=== PATIENT | female | born 1940 | race Caucasian/White ===

== ENCOUNTER 2017-08-25 01:52 | Inpatient (IN) | payer MEDICARE, BC ==
[~2017-08-25] VITALS: Ht 157.5 cm; Wt 119.0 kg
[2017-08-25 02:15] LABS: BASOPHILS % (AUTO) 0 % (0-1); EOSINOPHILS # (AUTO) 0.08 x10^3/uL (0-0.4); EOSINOPHILS % (AUTO) 1 % (1-7); LYMPHOCYTES # (AUTO) 0.96 x10^3/uL (1-3.4); LYMPHOCYTES % (AUTO) 10 % (22-44); MD NO; MEAN CORPUSCULAR HEMOGLOBIN 33.5 pg (27.0-34.8); MEAN CORPUSCULAR HGB CONC 33.7 g/dL (32.4-35.8); MEAN CORPUSCULAR VOLUME 99.4 fL (80-100); MEAN PLATELET VOLUME 7.3 fL (7.4-10.4); MONOCYTES # (AUTO) 0.44 x10^3/uL (0.2-0.8); MONOCYTES % (AUTO) 5 % (2-9); NEUTROPHILS # (AUTO) 8.24 x10^3/uL (1.8-6.8); NEUTROPHILS % (AUTO) 85 % (42-75); PLATELET COUNT 221 x10^3/uL (130-400); RED BLOOD COUNT 3.75 x10^6/uL (3.82-5.3); RED CELL DISTRIBUTION WIDTH 15.1 % (9.6-15.2)
[2017-08-25] MEDS ORDERED: LISI-170 PO (02:17)
[2017-08-25] MEDS ORDERED: FLUO20TA25 PO (02:17)
[2017-08-25] MEDS ORDERED: MS CONTIN ER PO (02:17)
[2017-08-25] MEDS ORDERED: ATOR20TA PO (02:17)
[2017-08-25] MEDS ORDERED: MORP-52 PO (02:17)
[2017-08-25] MEDS ORDERED: CALC600T23 PO (02:17)
[2017-08-25] MEDS ORDERED: TRAZ100T15 PO (02:17)
[2017-08-25] MEDS ORDERED: MELA5TAB19 PO (02:17)
[2017-08-25] MEDS ORDERED: GLIP5TAB10 PO (02:17)
[2017-08-25] MEDS ORDERED: BUME0.5T PO (02:18)
[2017-08-25] MEDS ORDERED: METO50TA82 PO (02:18)
[2017-08-25] MEDS ORDERED: ALLO100T64 PO (02:18)
[2017-08-25 02:23] LABS: INTERNATIONAL NORMALIZED RATIO 0.99 (0.93-1.1); PROTHROMBIN TIME 10.3 Seconds (9.6-11.5)
[2017-08-25 02:28] LABS: ALANINE AMINOTRANSFERASE 31 U/L (12-78); ALBUMIN 3.3 g/dL (3.4-5.0); ANION GAP 6 mmol/L (5-15); CALCIUM 8.6 mg/dL (8.5-10.1); CHLORIDE 106 mmol/L (98-107); CREATININE 1.27 mg/dL (0.55-1.02)
[2017-08-25 02:32] LABS: ALKALINE PHOSPHATASE 96 U/L (45-117); BILIRUBIN,TOTAL 0.3 mg/dL (0.2-1.0); TOTAL PROTEIN 7.1 g/dL (6.4-8.2); TROPONIN I < 0.015 ng/mL (0.000-0.045)
[2017-08-25 04:00] VITALS: BP 144/83
[2017-08-25] MEDS ORDERED: ONDANSETRON 2MG/ML, 2ML IVPush PRN (05:30)
[2017-08-25] MEDS ORDERED: hydrALAzine 20 MG/ML, 1ML IVPush PRN (05:30)
[2017-08-25] MEDS ORDERED: ACETAMINOPHEN 325 MG TABLET PO PRN (05:30)
[2017-08-25] MEDS: MS CONTIN HOMEMEDPO SCH ×2 (06:40→20:36)
[2017-08-25 07:08] LABS: TROPONIN I < 0.015 ng/mL (0.000-0.045)
[2017-08-25 07:11] VITALS: BP 118/80
[2017-08-25] MEDS ORDERED: MELATONIN 5 MG TABLET PO SCH ×2 (09:00→21:00)
[2017-08-25] MEDS: INSULIN LISPRO 100 UNITS/ML, PEN SQ-INSULIN SCH ×4 (09:55→21:00)
[2017-08-25] MEDS: FLUOXETINE HCL 20 MG CAPSULE PO SCH (10:17)
[2017-08-25] MEDS: BUMETANIDE 0.25 MG/ML, 4ML IV SCH ×2 (10:17→20:34)
[2017-08-25] MEDS: ALLOPURINOL 100 MG TABLET PO SCH (10:17)
[2017-08-25] MEDS: METOPROLOL TARTRATE 50 MG TABLET PO SCH ×2 (10:18→20:35)
[2017-08-25] MEDS: CALCIUM CARBONATE 500 MG TABLET PO SCH (10:18)
[2017-08-25] MEDS: POTASSIUM CHLORIDE 20 MEQ PACKET PO SCH (10:19)
[2017-08-25] MEDS: SODIUM CHLORIDE FLUSH 10ML SYR IVF SCH ×2 (10:19→20:36)
[2017-08-25] MEDS: ENOXAPARIN 30 MG/0.3 ML SQ SCH (10:21)
[2017-08-25] MEDS: POLYETHYLENE GLYCOL 17 GM PACKET PO PRN (10:29)
[2017-08-25 12:32] LABS: TROPONIN I < 0.015 ng/mL (0.000-0.045)
[2017-08-25 15:57] VITALS: BP 102/59
[2017-08-25 20:30] VITALS: BP 131/81
[2017-08-25] MEDS ORDERED: ATORVASTATIN 20 MG TABLET PO SCH (21:00)
[2017-08-25] MEDS ORDERED: TRAZODONE 100MG TABLET PO SCH (21:00)
[2017-08-25] MEDS: morphine SULFATE 10 MG/ML, 1ML IVPush PRN (21:07)
[2017-08-26 01:21] VITALS: BP 111/79
[2017-08-26 05:43] LABS: BASOPHILS # (AUTO) 0.03 x10^3/uL (0-0.1); BASOPHILS % (AUTO) 1 % (0-1); EOSINOPHILS # (AUTO) 0.12 x10^3/uL (0-0.4); EOSINOPHILS % (AUTO) 2 % (1-7); LYMPHOCYTES # (AUTO) 1.59 x10^3/uL (1-3.4); LYMPHOCYTES % (AUTO) 23 % (22-44); MD NO; MEAN PLATELET VOLUME 7.6 fL (7.4-10.4); MONOCYTES # (AUTO) 0.45 x10^3/uL (0.2-0.8); MONOCYTES % (AUTO) 7 % (2-9); NEUTROPHILS # (AUTO) 4.68 x10^3/uL (1.8-6.8); NEUTROPHILS % (AUTO) 68 % (42-75); PLATELET COUNT 202 x10^3/uL (130-400); RED CELL DISTRIBUTION WIDTH 15.6 % (9.6-15.2)
[2017-08-26 05:51] LABS: ALANINE AMINOTRANSFERASE 30 U/L (12-78); ALBUMIN 3.2 g/dL (3.4-5.0); ANION GAP 5 mmol/L (5-15); CALCIUM 9.3 mg/dL (8.5-10.1); CHLORIDE 105 mmol/L (98-107); CREATININE 1.29 mg/dL (0.55-1.02)
[2017-08-26 06:01] LABS: ALKALINE PHOSPHATASE 92 U/L (45-117); BILIRUBIN,TOTAL 0.7 mg/dL (0.2-1.0); THYROID STIMULATING HORMONE 0.606 mIU/L (0.358-3.740); TOTAL PROTEIN 6.8 g/dL (6.4-8.2)
[2017-08-26] MEDS: INSULIN LISPRO 100 UNITS/ML, PEN SQ-INSULIN SCH ×2 (07:00→12:28)
[2017-08-26 07:55] VITALS: BP 155/86
[2017-08-26] MEDS: MS CONTIN HOMEMEDPO SCH (09:00)
[2017-08-26] MEDS: ENOXAPARIN 30 MG/0.3 ML SQ SCH (09:02)
[2017-08-26] MEDS: POLYETHYLENE GLYCOL 17 GM PACKET PO PRN (09:02)
[2017-08-26] MEDS: POTASSIUM CHLORIDE 20 MEQ PACKET PO SCH (09:02)
[2017-08-26] MEDS: CALCIUM CARBONATE 500 MG TABLET PO SCH (09:03)
[2017-08-26] MEDS: METOPROLOL TARTRATE 50 MG TABLET PO SCH (09:03)
[2017-08-26] MEDS: FLUOXETINE HCL 20 MG CAPSULE PO SCH (09:03)
[2017-08-26] MEDS: ALLOPURINOL 100 MG TABLET PO SCH (09:03)
[2017-08-26] MEDS: BUMETANIDE 0.25 MG/ML, 4ML IV SCH (09:03)
[2017-08-26] MEDS: SODIUM CHLORIDE FLUSH 10ML SYR IVF SCH (09:04)
[2017-08-26] MEDS: morphine SULFATE 10 MG/ML, 1ML IVPush PRN (11:22)
[2017-08-26 13:09] VITALS: BP 128/78
[2017-08-27] MEDS ORDERED: Morphine IR PO (05:51)
== END 2017-08-26 16:00 | disposition home or self-care (01) | DRG 291 ==
LOC: ED 03:18 → 5SO 03:20 → DCLOUNGE 08-26 15:52
PROVIDERS: ADMIT Hospitalist; ATTEND Hospitalist
DX: I13.0 Hypertensive heart and chronic kidney disease with heart failure and stage 1 through stage 4 chronic kidney disease, or unspecified chronic kidney disease (principal); J96.01 Acute respiratory failure with hypoxia; I50.33 Acute on chronic diastolic (congestive) heart failure; D68.69 Other thrombophilia; E44.0 Moderate protein-calorie malnutrition; Z68.42 Body mass index [BMI] 45.0-49.9, adult; I25.10 Atherosclerotic heart disease of native coronary artery without angina pectoris; E66.9 Obesity, unspecified; N28.9 Disorder of kidney and ureter, unspecified; E11.22 Type 2 diabetes mellitus with diabetic chronic kidney disease; N18.3 Chronic kidney disease, stage 3 (moderate); I48.2 Chronic atrial fibrillation; Z90.49 Acquired absence of other specified parts of digestive tract; Z95.5 Presence of coronary angioplasty implant and graft
CPT/HCPCS: 36415; 71045; 80053; 82962; 83735; 83880; 84100; 84443; 84484; 85025; 85610; 93005; 93306; 99285; J1650; J1815; J2270

== ENCOUNTER 2017-08-27 03:11 | Inpatient (IN) | payer MEDICARE, BC ==
[~2017-08-27] VITALS: Ht 157.5 cm; Wt 111.4 kg
[~2017-08-27 03:11] MED LIST: ALLO100T64 PO; ATOR20TA PO; BUME0.5T PO; CALC600T23 PO; FLUO20TA25 PO; GLIP5TAB10 PO; LISI-170 PO; MELA5TAB19 PO; METO50TA82 PO; MORP-52 PO; MS CONTIN ER PO; TRAZ100T15 PO
[2017-08-27] MEDS ORDERED: SODIUM CHLORIDE FLUSH 10ML SYR IVF ONE (03:30)
[2017-08-27] MEDS ORDERED: NITROGLYCERIN OINT 2%, 1GM TP ONE ×2 (03:30→03:39)
[2017-08-27 03:55] LABS: BASOPHILS % (AUTO) 0 % (0-1); EOSINOPHILS # (AUTO) 0.02 x10^3/uL (0-0.4); EOSINOPHILS % (AUTO) 0 % (1-7); LYMPHOCYTES # (AUTO) 0.53 x10^3/uL (1-3.4); LYMPHOCYTES % (AUTO) 4 % (22-44); MD NO; MEAN CORPUSCULAR HGB CONC 33.2 g/dL (32.4-35.8); MEAN CORPUSCULAR VOLUME 99.4 fL (80-100); MEAN PLATELET VOLUME 7.7 fL (7.4-10.4); MONOCYTES # (AUTO) 0.53 x10^3/uL (0.2-0.8); MONOCYTES % (AUTO) 4 % (2-9); NEUTROPHILS # (AUTO) 11.72 x10^3/uL (1.8-6.8); NEUTROPHILS % (AUTO) 92 % (42-75); PLATELET COUNT 222 x10^3/uL (130-400); RED BLOOD COUNT 3.93 x10^6/uL (3.82-5.3); RED CELL DISTRIBUTION WIDTH 15.7 % (9.6-15.2)
[2017-08-27 04:06] LABS: ALANINE AMINOTRANSFERASE 31 U/L (12-78); ALBUMIN 3.2 g/dL (3.4-5.0); ANION GAP 9 mmol/L (5-15); CALCIUM 8.7 mg/dL (8.5-10.1); CHLORIDE 108 mmol/L (98-107); CREATININE 1.39 mg/dL (0.55-1.02)
[2017-08-27 04:10] LABS: ALKALINE PHOSPHATASE 115 U/L (45-117); BILIRUBIN,TOTAL 0.3 mg/dL (0.2-1.0); TROPONIN I < 0.015 ng/mL (0.000-0.045)
[2017-08-27] MEDS ORDERED: FUROSEMIDE 40 MG/4 ML IV ONE (04:30)
[2017-08-27] MEDS ORDERED: INSULIN REGULAR 100 UNITS/ML, 3ML VIAL SQ-INSULIN ONE (04:30)
[2017-08-27] MEDS ORDERED: FUROSEMIDE 40 MG/4 ML ONE (04:48)
[2017-08-27] MEDS ORDERED: INSULIN REGULAR 100 UNITS/ML, 3ML VIAL ONE (04:49)
[2017-08-27] MEDS ORDERED: POLYETHYLENE GLYCOL 17 GM PACKET PO PRN (05:00)
[2017-08-27] MEDS ORDERED: ENOXAPARIN 30 MG/0.3 ML SQ SCH (05:00)
[2017-08-27] MEDS ORDERED: ONDANSETRON 2MG/ML, 2ML IVPush PRN (05:00)
[2017-08-27 05:30] VITALS: BP 130/83
[2017-08-27] MEDS ORDERED: Morphine IR PO (05:51)
[2017-08-27] MEDS ORDERED: DEXTROSE 50%, 50ML SYRINGE IVPush PRN (06:30)
[2017-08-27] MEDS ORDERED: DEXTROSE 4 GM TAB.CHEW PO PRN (06:30)
[2017-08-27] MEDS ORDERED: GLUCAGON 1 MG IM PRN (06:30)
[2017-08-27] MEDS: MELATONIN 5 MG TABLET PO SCH (08:24)
[2017-08-27] MEDS: INSULIN LISPRO 100 UNITS/ML, PEN SQ-INSULIN SCH ×4 (08:37→20:25)
[2017-08-27] MEDS: CALCIUM CARBONATE 500 MG TABLET PO SCH (08:37)
[2017-08-27] MEDS: MS CONTIN HOMEMEDPO SCH ×2 (08:38→21:00)
[2017-08-27] MEDS: FLUOXETINE HCL 20 MG CAPSULE PO SCH (08:38)
[2017-08-27] MEDS: METOPROLOL TARTRATE 50 MG TABLET PO SCH ×2 (08:39→20:24)
[2017-08-27] MEDS: SODIUM CHLORIDE FLUSH 10ML SYR IVF SCH ×4 (08:39→20:26)
[2017-08-27 08:41] VITALS: BP 136/79
[2017-08-27] MEDS: LISINOPRIL 20 MG TABLET PO SCH (08:45)
[2017-08-27] MEDS: ALLOPURINOL 100 MG TABLET PO SCH (08:45)
[2017-08-27 13:02] LABS: CHLORIDE 108 mmol/L (98-107)
[2017-08-27 13:13] LABS: ALBUMIN 3.1 g/dL (3.4-5.0); ANION GAP 5 mmol/L (5-15); CALCIUM 8.9 mg/dL (8.5-10.1)
[2017-08-27 13:20] LABS: TROPONIN I 0.025 ng/mL (0.000-0.045)
[2017-08-27] MEDS: FUROSEMIDE 40 MG/4 ML IV SCH ×2 (13:20→17:18)
[2017-08-27 13:25] VITALS: BP 142/85
[2017-08-27 14:56] LABS: AMPHETAMINE SCREEN, URINE Negative (Negative); BARBITURATE SCREEN, URINE Negative (Negative); BENZODIAZEPINE SCREEN, URINE Negative (Negative); CANNABINOID SCREEN, URINE Negative (Negative); COCAINE SCREEN, URINE Negative (Negative); METHADONE SCREEN, URINE Negative (Negative); OPIATE SCREEN, URINE Positive (Negative)
[2017-08-27] MEDS: ACETAMINOPHEN 325 MG TABLET PO PRN (17:02)
[2017-08-27 19:01] VITALS: BP 136/83
[2017-08-27] MEDS ORDERED: morphine SULFATE 15 MG TAB.IR ONE (20:21)
[2017-08-27] MEDS: APIXABAN 5 MG TABLET PO SCH (20:24)
[2017-08-27] MEDS: ATORVASTATIN 20 MG TABLET PO SCH (20:24)
[2017-08-27] MEDS ORDERED: TRAZODONE 100MG TABLET PO SCH ×2 (21:00)
[2017-08-27] MEDS ORDERED: morphine SULFATE 15 MG TAB.IR PO SCH ×2 (21:00)
[2017-08-27] MEDS: TRAZODONE 150MG TABLET PO SCH (21:00)
[2017-08-28 01:02] VITALS: BP 149/91
[2017-08-28 05:51] LABS: BASOPHILS # (AUTO) 0.03 x10^3/uL (0-0.1); BASOPHILS % (AUTO) 0 % (0-1); EOSINOPHILS % (AUTO) 1 % (1-7); LYMPHOCYTES # (AUTO) 1.47 x10^3/uL (1-3.4); LYMPHOCYTES % (AUTO) 17 % (22-44); MD NO; MEAN CORPUSCULAR HEMOGLOBIN 33.2 pg (27.0-34.8); MEAN CORPUSCULAR VOLUME 100.6 fL (80-100); MEAN PLATELET VOLUME 7.4 fL (7.4-10.4); MONOCYTES # (AUTO) 0.57 x10^3/uL (0.2-0.8); MONOCYTES % (AUTO) 6 % (2-9); NEUTROPHILS # (AUTO) 6.75 x10^3/uL (1.8-6.8); NEUTROPHILS % (AUTO) 76 % (42-75); PLATELET COUNT 206 x10^3/uL (130-400); RED BLOOD COUNT 3.61 x10^6/uL (3.82-5.3); RED CELL DISTRIBUTION WIDTH 15.8 % (9.6-15.2)
[2017-08-28 05:59] LABS: ANION GAP 4 mmol/L (5-15); CALCIUM 8.8 mg/dL (8.5-10.1); CHLORIDE 104 mmol/L (98-107); CHOLESTEROL, TOTAL 150 mg/dL (140-239); CREATININE 1.17 mg/dL (0.55-1.02); TRIGLYCERIDES 128 mg/dL (50-200); VLDL CHOLESTEROL 26 mg/dL (0-25)
[2017-08-28 06:06] LABS: HEMOGLOBIN A1C 6.4 % (4.2-6.3)
[2017-08-28 06:09] LABS: HDL CHOL % 33 % (28-40); HDL CHOLESTEROL (DIRECT) 50 mg/dL (40-60); LDL CHOLESTEROL,CALCULATED 74 mg/dL (54-169); LDL/HDL RATIO 1.5 (0.5-3.0); THYROID STIMULATING HORMONE 0.588 mIU/L (0.358-3.740)
[2017-08-28] MEDS ORDERED: POTASSIUM CHLORIDE 20 MEQ TAB.ER.PRT PO ONE (06:30)
[2017-08-28 07:06] VITALS: BP 143/89
[2017-08-28 07:45] LABS: FOLATE LEVEL 17.6 ng/mL (3.1-17.5)
[2017-08-28] MEDS: INSULIN LISPRO 100 UNITS/ML, PEN SQ-INSULIN SCH ×4 (08:47→20:14)
[2017-08-28] MEDS ORDERED: morphine SULFATE 15 MG TAB.IR PO SCH (09:00)
[2017-08-28] MEDS ORDERED: ENOXAPARIN 40 MG/0.4 ML SQ SCH (09:00)
[2017-08-28] MEDS: FUROSEMIDE 40 MG/4 ML IV SCH ×2 (09:25→17:15)
[2017-08-28] MEDS: SODIUM CHLORIDE FLUSH 10ML SYR IVF SCH ×2 (09:25→20:12)
[2017-08-28] MEDS: CALCIUM CARBONATE 500 MG TABLET PO SCH (09:26)
[2017-08-28] MEDS: METOPROLOL TARTRATE 50 MG TABLET PO SCH ×2 (09:26→20:13)
[2017-08-28] MEDS: FLUOXETINE HCL 20 MG CAPSULE PO SCH (09:26)
[2017-08-28] MEDS: ALLOPURINOL 100 MG TABLET PO SCH (09:27)
[2017-08-28] MEDS: APIXABAN 5 MG TABLET PO SCH ×2 (09:27→20:13)
[2017-08-28] MEDS: LISINOPRIL 20 MG TABLET PO SCH (09:27)
[2017-08-28 14:42] VITALS: BP 140/82
[2017-08-28] MEDS: ACETAMINOPHEN 325 MG TABLET PO PRN ×2 (17:15→20:33)
[2017-08-28 19:20] VITALS: BP 149/91
[2017-08-28] MEDS: TRAZODONE 150MG TABLET PO SCH (20:12)
[2017-08-28] MEDS: ATORVASTATIN 20 MG TABLET PO SCH (20:13)
[2017-08-28] MEDS: MELATONIN 5 MG TABLET PO SCH (20:33)
[2017-08-29 00:24] VITALS: BP 168/94
[2017-08-29 05:37] LABS: BASOPHILS # (AUTO) 0.01 x10^3/uL (0-0.1); BASOPHILS % (AUTO) 0 % (0-1); EOSINOPHILS # (AUTO) 0.08 x10^3/uL (0-0.4); EOSINOPHILS % (AUTO) 1 % (1-7); LYMPHOCYTES % (AUTO) 21 % (22-44); MD NO; MEAN CORPUSCULAR HEMOGLOBIN 33.6 pg (27.0-34.8); MEAN CORPUSCULAR HGB CONC 33.8 g/dL (32.4-35.8); MEAN CORPUSCULAR VOLUME 99.4 fL (80-100); MEAN PLATELET VOLUME 7.4 fL (7.4-10.4); MONOCYTES # (AUTO) 0.48 x10^3/uL (0.2-0.8); MONOCYTES % (AUTO) 7 % (2-9); NEUTROPHILS % (AUTO) 71 % (42-75); PLATELET COUNT 221 x10^3/uL (130-400); RED BLOOD COUNT 3.95 x10^6/uL (3.82-5.3); RED CELL DISTRIBUTION WIDTH 15.4 % (9.6-15.2)
[2017-08-29 05:52] LABS: ALBUMIN 3.2 g/dL (3.4-5.0); ANION GAP 7 mmol/L (5-15); CALCIUM 9.4 mg/dL (8.5-10.1); CHLORIDE 103 mmol/L (98-107); CREATININE 1.08 mg/dL (0.55-1.02)
[2017-08-29] MEDS ORDERED: POTASSIUM CHLORIDE 20 MEQ TAB.ER.PRT PO ONE (06:30)
[2017-08-29 07:45] VITALS: BP 139/90
[2017-08-29] MEDS ORDERED: FUROSEMIDE 40 MG/4 ML IV SCH (09:00)
[2017-08-29] MEDS: INSULIN LISPRO 100 UNITS/ML, PEN SQ-INSULIN SCH ×4 (09:07→20:21)
[2017-08-29] MEDS: LISINOPRIL 20 MG TABLET PO SCH (09:09)
[2017-08-29] MEDS: METOPROLOL TARTRATE 50 MG TABLET PO SCH ×2 (09:09→20:23)
[2017-08-29] MEDS: APIXABAN 5 MG TABLET PO SCH ×2 (09:09→20:22)
[2017-08-29] MEDS: SODIUM CHLORIDE FLUSH 10ML SYR IVF SCH ×2 (09:09→20:23)
[2017-08-29] MEDS: ALLOPURINOL 100 MG TABLET PO SCH (09:10)
[2017-08-29] MEDS: CALCIUM CARBONATE 500 MG TABLET PO SCH (09:11)
[2017-08-29] MEDS: morphine SULFATE 15 MG TAB.IR PO PRN (09:12)
[2017-08-29] MEDS: FLUOXETINE HCL 20 MG CAPSULE PO SCH (09:12)
[2017-08-29] MEDS: ACETAMINOPHEN 325 MG TABLET PO PRN ×2 (13:21→22:29)
[2017-08-29 15:04] VITALS: BP 135/84
[2017-08-29 18:26] VITALS: BP 134/80
[2017-08-29] MEDS: TRAZODONE 150MG TABLET PO SCH (20:21)
[2017-08-29] MEDS: ATORVASTATIN 20 MG TABLET PO SCH (20:23)
[2017-08-29] MEDS: MELATONIN 5 MG TABLET PO SCH (20:23)
[2017-08-30 01:28] VITALS: BP 137/84
[2017-08-30 04:54] LABS: ALBUMIN 3.2 g/dL (3.4-5.0); ANION GAP 6 mmol/L (5-15); CALCIUM 9.3 mg/dL (8.5-10.1); CHLORIDE 104 mmol/L (98-107); CREATININE 1.11 mg/dL (0.55-1.02)
[2017-08-30] MEDS: INSULIN LISPRO 100 UNITS/ML, PEN SQ-INSULIN SCH ×4 (07:00→20:22)
[2017-08-30 07:09] VITALS: BP 148/80
[2017-08-30] MEDS: APIXABAN 5 MG TABLET PO SCH ×2 (08:40→20:20)
[2017-08-30] MEDS: ALLOPURINOL 100 MG TABLET PO SCH (08:40)
[2017-08-30] MEDS: CALCIUM CARBONATE 500 MG TABLET PO SCH (08:40)
[2017-08-30] MEDS: LISINOPRIL 20 MG TABLET PO SCH (08:41)
[2017-08-30] MEDS: FLUOXETINE HCL 20 MG CAPSULE PO SCH (08:41)
[2017-08-30] MEDS: METOPROLOL TARTRATE 50 MG TABLET PO SCH ×2 (08:41→20:20)
[2017-08-30] MEDS: FUROSEMIDE 40 MG TABLET PO SCH (08:42)
[2017-08-30] MEDS: SODIUM CHLORIDE FLUSH 10ML SYR IVF SCH ×2 (09:00→20:20)
[2017-08-30 11:20] LABS: CLOSTRIDIUM DIFFICILE ANTIGEN NEGATIVE; CLOSTRIDIUM DIFFICILE TOXIN NEGATIVE (Negative)
[2017-08-30 14:32] VITALS: BP 136/84
[2017-08-30] MEDS: morphine SULFATE 15 MG TAB.IR PO PRN (15:12)
[2017-08-30 18:40] VITALS: BP 140/88
[2017-08-30] MEDS: TRAZODONE 150MG TABLET PO SCH (20:19)
[2017-08-30] MEDS: MELATONIN 5 MG TABLET PO SCH (20:20)
[2017-08-30] MEDS: ATORVASTATIN 20 MG TABLET PO SCH (20:20)
[2017-08-31 01:25] VITALS: BP 138/86
[2017-08-31 05:03] LABS: ALBUMIN 3.2 g/dL (3.4-5.0); ANION GAP 5 mmol/L (5-15); CALCIUM 8.9 mg/dL (8.5-10.1); CHLORIDE 104 mmol/L (98-107)
[2017-08-31 05:04] LABS: CREATININE 1.13 mg/dL (0.55-1.02); TROPONIN I < 0.015 ng/mL (0.000-0.045)
[2017-08-31 07:12] VITALS: BP 136/81
[2017-08-31] MEDS: INSULIN LISPRO 100 UNITS/ML, PEN SQ-INSULIN SCH ×3 (08:38→17:17)
[2017-08-31] MEDS ORDERED: REGADENOSON 0.4 MG/5 ML SYRINGE ONE (09:18)
[2017-08-31] MEDS: FUROSEMIDE 40 MG TABLET PO SCH (10:03)
[2017-08-31] MEDS: LISINOPRIL 20 MG TABLET PO SCH (10:03)
[2017-08-31] MEDS: APIXABAN 5 MG TABLET PO SCH (10:03)
[2017-08-31] MEDS: METOPROLOL TARTRATE 50 MG TABLET PO SCH (10:04)
[2017-08-31] MEDS: CALCIUM CARBONATE 500 MG TABLET PO SCH (10:04)
[2017-08-31] MEDS: FLUOXETINE HCL 20 MG CAPSULE PO SCH (10:04)
[2017-08-31] MEDS: ALLOPURINOL 100 MG TABLET PO SCH (10:07)
[2017-08-31] MEDS: SODIUM CHLORIDE FLUSH 10ML SYR IVF SCH (10:08)
[2017-08-31] MEDS ORDERED: FURO40TA6 PO (15:39)
[2017-08-31] MEDS ORDERED: APIX5TAB PO (15:39)
[2017-08-31 16:14] VITALS: BP 145/83
[2017-08-31] MEDS: morphine SULFATE 15 MG TAB.IR PO PRN (17:17)
== END 2017-08-31 17:35 | disposition home or self-care (01) | DRG 682 ==
LOC: ED 03:20 → EDIP 04:40 → 5SO 05:24
PROVIDERS: ADMIT Hospitalist; ATTEND Hospitalist
DX: N17.9 Acute kidney failure, unspecified (principal); I50.43 Acute on chronic combined systolic (congestive) and diastolic (congestive) heart failure; J96.01 Acute respiratory failure with hypoxia; J18.9 Pneumonia, unspecified organism; J96.02 Acute respiratory failure with hypercapnia; I13.0 Hypertensive heart and chronic kidney disease with heart failure and stage 1 through stage 4 chronic kidney disease, or unspecified chronic kidney disease; D68.59 Other primary thrombophilia; E44.0 Moderate protein-calorie malnutrition; E87.4 Mixed disorder of acid-base balance; Z68.41 Body mass index [BMI] 40.0-44.9, adult; R53.81 Other malaise; R61 Generalized hyperhidrosis; E11.22 Type 2 diabetes mellitus with diabetic chronic kidney disease; E78.5 Hyperlipidemia, unspecified; N18.9 Chronic kidney disease, unspecified; I25.10 Atherosclerotic heart disease of native coronary artery without angina pectoris; I27.20 Pulmonary hypertension, unspecified; I44.7 Left bundle-branch block, unspecified; I48.2 Chronic atrial fibrillation; Z90.49 Acquired absence of other specified parts of digestive tract; Z98.891 History of uterine scar from previous surgery
CPT/HCPCS: 36415; 36600; 71045; 78452; 80048; 80053; 80061; 80307; 82040; 82607; 82746; 82803; 82962; 83036; 83735; 83880; 84100; 84443; 84484; 85025; 87040; 87324; 93005; 93017; 93970; J1650; J1940; J2785; A9502; C9898